=== PATIENT | female | born 1995 | race Caucasian/White ===

== ENCOUNTER 2017-01-24 14:22 | Day surgery (SDC) | payer OTHER ==
[~2017-01-24] VITALS: Ht 170.2 cm; Wt 75.8 kg
[~2017-01-24 14:22] MED LIST: ALPR1TAB2 PO; FLUO20CA38 PO; QUET200T4 PO
[2017-01-24] MEDS ORDERED: OMEP20CA16 PO (14:51)
[2017-01-24] MEDS ORDERED: [UNRECOGNIZED DRUG - OTHER] (14:51)
[2017-01-24] MEDS ORDERED: CLON2TAB3 PO (14:51)
[2017-01-24] MEDS ORDERED: CETI5TAB23 PO (14:51)
[2017-01-24 14:55] VITALS: Ht 170.2 cm; Wt 75.8 kg
[2017-01-24] MEDS ORDERED: LIDOCAINE 4% SOLUTION 50 ML BTL ONE (15:21)
[2017-01-24 15:29] LABS: HEMATOCRIT 40.4 % (37.0-47.0); HEMOGLOBIN 12.9 g/dl (12.0-16.0)
--- NOTE | 2017-01-24 15:42 | OPPN ---
Date/Time of Note Date/Time of Note DATE: 01/24/17 TIME: 15:39 Operative Report Preoperative Diagnosis UGI BLEED ,EPIGASTRIC PAIN Postoperative Diagnosis MILD GASTRITIS Operation/Procedure Performed EGD BX Provider: KENNETH ACUÑA MD Anesthesia Type: moderate sedation (VERSE 4MG/[id number]) Estimated blood loss: none Transfusion Required: no Specimens RANDOM GASTRIC BX Grafts/Implants: none Complications: no (CONTINUE OMEPREZOLE) KENNETH ACUÑA MD Jan 24, 2017 15:42
[2017-01-24] MEDS ORDERED: MIDAZOLAM 1 MG/ML 2 ML INJ ONE ×2 (16:02)
[2017-01-24] MEDS ORDERED: FENTAnyl 50 MCG/ML VIAL ONE (16:02)
[2017-01-24 16:05] VITALS: BP 132/71; PULSE 68; RESP 16
--- NOTE | 2017-01-24 16:43 | GILP ---
DATE OF PROCEDURE: 01/24/2017 PREOPERATIVE DIAGNOSES: 1. History of epigastric pain, vomiting blood. 2. History of melena. The patient was brought for upper endoscopy to rule out peptic ulcer disease or gastrointestinal bleed. PROCEDURE PERFORMED: EGD. POSTOP DIAGNOSIS: Mild gastritis, otherwise normal study. No peptic ulcer, erosive esophagitis or any other lesions noted. DESCRIPTION OF PROCEDURE: The patient was put in left lateral decubitus. After obtaining informed consent, posterior pharynx anesthetized with 4 percent lidocaine. She received 4 mg IV Versed and 100 mcg of fentanyl. Advanced an Olympus video upper endoscope into the esophagus, stomach and duodenum. The entire esophagus examined is normal. In the stomach, including retroflexion, fundus exam is normal. Antegrade exam of the body and antrum normal. Pyloric channel normal. Easily entered the duodenal bulb, twice I examine this area, duodenal bulb, postbulbar area and second part, these are normal. On the way out random gastric biopsy done as mild gastritis was suspected, and then the scope was withdrawn. Patient had no complication. No active bleeding at present. RECOMMENDATIONS: Recommend if she still symptomatic we will continue omeprazole and follow up as outpatient to see if there is any H pylori in the biopsy. Meanwhile, patient will follow up with her primary and also her personal physician. Dictated By: Karl Trent MD /[email or web address] /Document#: [id number] ; Primary Care Physician
== END 2017-01-24 17:17 | disposition home or self-care (01) ==
LOC: GIL 14:22
PROVIDERS: ATTEND Internal Medicine
DX: K29.50 Unspecified chronic gastritis without bleeding (principal)
CPT/HCPCS: 43239; 84703; 85014; 85018; 88305; 88312; J2250; J3010; Z7610